=== PATIENT | female | born 1990 | race Caucasian/White ===

== ENCOUNTER 2017-08-02 13:00 | Emergency (ER) | payer OTHER ==
[~2017-08-02] VITALS: Ht 180.3 cm; Wt 86.4 kg
[2017-08-02] MEDS ORDERED: NS 1,000 ML IV ONE (15:45)
[2017-08-02 16:25] LABS: BASO % 0.2 % (0.0-1.0); IMMATURE GRANULOCYTE % 0.1 % (0-0); LYMPH # 1.1 10^3/uL (1.5-6.5); MEAN CORPUSCULAR HGB CONC 32.9 g/dl (32.0-36.5); MEAN CORPUSCULAR VOLUME 88.1 fl (80.0-96.0); MONO # 0.4 10^3/uL (0.0-0.8); MONO % 4.1 % (0.0-5.0); NEUTROPHILS # 8.3 10^3/uL (1.8-7.7); NEUTROPHILS % 84.6 % (36.0-66.0); PLATELET COUNT, AUTOMATED 273 10^3/uL (150-450); RED CELL DISTRIBUTION WIDTH 11.7 % (11.5-14.5); WHITE BLOOD COUNT 9.9 10^3/uL (4.0-10.0)
--- NOTE | 2017-08-02 16:34 | REP ---
Clinical: Shortness of breath . Comparison: None . Technique: PA and lateral. Findings: The mediastinum and cardiac silhouette are normal. The lung smith are clear and without acute consolidation, effusion, or pneumothorax. The skeletal structures are intact and normal. Impression: 1. No acute cardiopulmonary process. Signed by Vincent Davis MD 08/02/2017 04:26 P
[2017-08-02 16:54] LABS: ANION GAP 9 MEQ/L (8-16); BLOOD UREA NITROGEN 8 MG/DL (7-18); CALCIUM LEVEL 9.4 MG/DL (8.5-10.1); CARBON DIOXIDE LEVEL 25 MEQ/L (21-32); CHLORIDE LEVEL 106 MEQ/L (98-107); CREATININE FOR GFR 0.76 MG/DL (0.55-1.02); GLOMERULAR FILTRATION RATE > 60.0 (>60); GLUCOSE, FASTING 93 MG/DL (70-105); MAGNESIUM LEVEL 1.9 MG/DL (1.8-2.4); POTASSIUM SERUM 3.9 MEQ/L (3.5-5.1); SODIUM LEVEL 140 MEQ/L (136-145); T UPTAKE 33 % (30-39); THYROXINE (T4) 12.6 UG/DL (4.5-12.0)
--- NOTE | 2017-08-02 17:13 | REP ---
Clinical: Right upper extremity pain with history of thrombus . Technique: Mtz scale and color Doppler evaluation using linear high frequency transducer. Findings: Ultrasound examination of the right upper extremity deep venous structures demonstrates nonocclusive thrombus in the distal subclavian and mid basilic veins. The visualized jugular, axillary, brachial, and cephalic veins appear patent and normal. Impression: Nonocclusive thrombus within the distal subclavian and mid basilic veins. No prior examination is available for comparison. Signed by Vincent Davis MD 08/02/2017 05:05 P
[2017-08-02] MEDS ORDERED: ISOVUE-370 76% 100ML VIAL (Q9967) As Ordered ONE (17:33)
--- NOTE | 2017-08-02 18:02 | REP ---
Clinical: Acute chest pain. Palpitations. Technique: Axial contrast enhanced images from the thoracic inlet to the upper abdomen using 100 ml Isovue 370 intravenous contrast material with coronal and sagittal re-formations. Findings: Satisfactory enhancement of the pulmonary vasculature is achieved and no filling defects are identified to suggest pulmonary embolus. Thoracic aorta is normal caliber without aneurysm or dissection. Heart and pericardium are normal. Bilateral lung smith are well aerated and clear without acute pulmonary parenchymal consolidation or atelectasis. No nodule or mass lesion. No pleural effusion/reaction. No pneumothorax. No adenopathy. Impression: No evidence for pulmonary embolus. No acute pleuroparenchymal or mediastinal process. Signed by Vincent Davis MD 08/02/2017 05:53 P
[2017-08-02] MEDS ORDERED: XARE15TA PO (18:22)
[2017-08-02 18:42] VITALS: BP 111/62
[2017-08-02] MEDS ORDERED: RIVAROXABAN 15 MG TAB (XARELTO) PO ONE (19:00)
--- NOTE | 2017-08-03 08:12 | ECGEPIP ---
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 Order Number: [id number] Reading MD: Daenna Madden Measurements Intervals Adams Rate: 76 P: 49 MI: 171 QRS: 30 QRSD: 107 T: 32 QT: 362 QTc: 408 Interpretive Statements SINUS RHYTHM WITH SINUS ARRHYTHMIA NO PRIOR FOR COMPARISON Electronically Signed On 08-03-2017 8:12:14 EST by Deanna Madden
== END 2017-08-02 19:23 | disposition home or self-care (01) ==
LOC: M ED 13:00
DX: I82.621 Acute embolism and thrombosis of deep veins of right upper extremity (principal)
CPT/HCPCS: 71020; 71275; 80048; 81025; 83735; 84436; 84443; 84479; 85025; 85379; 93005; 93041; 93971; 96360; 96361; 99284; Q9967

== ENCOUNTER → 2017-12-21 | Outpatient (REF) | payer OTHER ==
[2017-12-21 20:34] LABS: CHLAMYDIA DNA AMPLIFICATION NEGATIVE (NEGATIVE); GC DNA AMPLIFICATION NEGATIVE (NEGATIVE)
== END ==
LOC: M LAB REF 18:10
DX: Z01.411 Encounter for gynecological examination (general) (routine) with abnormal findings (principal); Z11.3 Encounter for screening for infections with a predominantly sexual mode of transmission